=== PATIENT | female | born 1945 | race Caucasian/White ===

== ENCOUNTER 2022-10-24 14:17 | Outpatient (CLI) | payer MEDICARE, OTHER | END 2022-10-24 14:18 | disposition home or self-care (01) | LOC: TBSIIMAG 14:17 | PROVIDERS: ATTEND Physician Assistant | DX: M54.6 Pain in thoracic spine (principal); M54.9 Dorsalgia, unspecified; M79.18 Myalgia, other site; M47.816 Spondylosis without myelopathy or radiculopathy, lumbar region | CPT/HCPCS: 72072; 72100 ==

== ENCOUNTER 2025-08-11 06:24 | Day surgery (SDC) | payer MEDICARE, OTHER ==
[2025-08-07 17:00] VITALS: BMI 24.2
[~2025-08-11 06:24] MED LIST: EPINEPHrine 0.3 MG in Ophthalmic Irrigation Solution 500 ML IRR SCH
[2025-08-11] MEDS ORDERED: Cyclopentolate 1% Opth Drop 2 ML BOT ONE (07:03)
[2025-08-11] MEDS ORDERED: Lidocaine 1% PF 5 ML VIAL ONE (07:58)
[2025-08-11] MEDS ORDERED: GLYCOPYRROLATE/PF 0.2 MG/ML VIAL ONE (08:38)
== END 2025-08-11 09:53 | disposition home or self-care (01) ==
LOC: SDC 06:24
PROVIDERS: ATTEND Ophthalmology Retina Specialist
PROC: 08T53ZZ Resection of Left Vitreous, Percutaneous Approach (ICD-10-PCS; principal; 2025-08-11)
DX: H43.392 Other vitreous opacities, left eye (principal); I10 Essential (primary) hypertension
CPT/HCPCS: 67036; J0166; J2250; J3010; J3490